=== PATIENT | female | born 1965 | race Caucasian/White ===

== ENCOUNTER 2019-02-13 21:39 | Emergency (ER) | payer OTHER ==
[~2019-02-13] VITALS: Ht 162.6 cm; Wt 90.7 kg
[2019-02-13] MEDS ORDERED: COZAAR25 MG (21:51)
== END 2019-02-13 23:54 | disposition home or self-care (01) ==
LOC: ER 21:39
DX: S80.212A Abrasion, left knee, initial encounter (principal); W18.39XA Other fall on same level, initial encounter; Y93.89 Activity, other specified; Y92.89 Other specified places as the place of occurrence of the external cause; Y99.8 Other external cause status